=== PATIENT | female | born 1975 | race Caucasian/White ===

== ENCOUNTER 2017-04-06 02:08 | Emergency (ER) | payer BC, OTHER, SELFPAY ==
[~2017-04-06] VITALS: Ht 167.6 cm; Wt 127.0 kg
[~2017-04-06 02:08] MED LIST: ACET65TA; CIPR500T19; FLAG500T; HYDROCORTISONE0.5 %; K-TA10TA; MARINA; METO10TA2; VICO5TAB
[2017-04-06] MEDS ORDERED: NORCOTAB PO (02:59)
[2017-04-06] MEDS ORDERED: CLEO300C2 PO (02:59)
[2017-04-06] MEDS ORDERED: IBUP80TA PO (02:59)
[2017-04-06] MEDS ORDERED: IBUPROFEN 800 MG TAB PO ONE (03:00)
[2017-04-06] MEDS ORDERED: NORCO 5/325MG TABLET (BULK FOR ED) PO ONE (03:00)
[2017-04-06 03:10] VITALS: BP 142/68
== END 2017-04-06 03:10 | disposition home or self-care (01) ==
LOC: M ED 02:08
DX: S02.5XXA Fracture of tooth (traumatic), initial encounter for closed fracture (principal); X58.XXXA Exposure to other specified factors, initial encounter; Y92.89 Other specified places as the place of occurrence of the external cause; Y93.89 Activity, other specified; Y99.8 Other external cause status